=== PATIENT | male | born 1960 | race Caucasian/White ===

== ENCOUNTER 2017-01-26 10:14 | Day surgery (SDC) | payer OTHER ==
[~2017-01-26] VITALS: Ht 167.6 cm; Wt 69.8 kg
--- NOTE | ~2017-01-26 | EGD ---
EGD REPORT [facility] [address] [address] NAME: CODY RICHARDSON : [birth year] STATUS : REG [facility]#: [id number] AGE: 56 ADM/REG DATE : 01/26/17 MR#: [id number] REPORT SERV DATE: 01/26/17 DICTATED BY: AVERY MOMIN DATE: 01/26/17 REPORT STATUS : Draft [facility] DATE: 01/26/17 Endoscopy Center Patient Name: Cody Richardson Date of : 1960 Attending MD: AVERY MOMIN MD Procedure Date No Time: 01/26/2017 Procedure: Upper GI endoscopy Indications: Generalized abdominal pain, Iron deficiency anemia Referring MD: NAHEED HICKS Medicines: Propofol per Anesthesia Complications: No immediate complications. Procedure: Pre-Anesthesia Assessment: - ASA Grade Assessment: III - A patient with severe systemic disease. After obtaining informed consent, the endoscope was passed under direct vision. Throughout the procedure, the patient's blood pressure, pulse, and oxygen saturations were monitored continuously. The GIF [id number] was introduced through the mouth, and advanced to the second part of duodenum. The upper GI endoscopy was accomplished without difficulty. The patient tolerated the procedure well. Findings: The examined esophagus was normal. Diffuse moderate inflammation characterized by erosions, erythema and friability was found in the stomach. The examined duodenum was normal. Impression: - Normal esophagus. - Chronic gastritis. - Normal examined duodenum. Recommendation: - Patient has a contact number available for emergencies. The signs and symptoms of potential delayed complications were discussed with the patient. Return to normal activities tomorrow. Written discharge instructions were provided to the patient. - Regular diet. - Patient has a contact number available for emergencies. The signs and symptoms of potential delayed complications were discussed with the patient. Return to normal activities tomorrow. Written discharge instructions were provided to the patient. - Continue present medications. EGD REPORT [address] [address] NAME: CODY RICHARDSON : [birth year] STATUS : REG [facility]#: [id number] AGE: 56 ADM/REG DATE : 01/26/17 MR#: [id number] REPORT SERV DATE: 01/26/17 DICTATED BY: AVERY MOMIN. DATE: 01/26/17 REPORT STATUS : Draft TRANSCRIBED BY: [facility] DATE: 01/26/17 Procedure Code(s): --- Professional --- 21320, Esophagogastroduodenoscopy, flexible, transoral; diagnostic, including collection of specimen(s) by brushing or washing, when performed (separate procedure) Diagnosis Code(s): --- Professional --- K29.50, Unspecified chronic gastritis without bleeding R10.84, Generalized abdominal pain D50.9, Iron deficiency anemia, unspecified CPT copyright 2013 [employer] [place] [employer]. All rights reserved. The codes documented in this report are preliminary and upon networking specialist review may be revised to meet current compliance requirements. Avery Momin MD AVERY MOMIN MD 01/26/2017 10:52 AM This report has been signed electronically. Number of Addenda: 0 Note Initiated On: 01/26/2017 10:44 AM Scope Withdrawal Time 0 hours 0 minutes 0 seconds [address] [place] [address]
--- NOTE | ~2017-01-26 | EGD ---
EGD REPORT [facility] [address] [address] NAME: CODY RICHARDSON : [birth year] STATUS : REG [facility]#: [id number] AGE: 56 ADM/REG DATE : 01/26/17 MR#: [id number] REPORT SERV DATE: 01/26/17 DICTATED BY: AVERY MOMIN DATE: 01/26/17 REPORT STATUS : Draft [facility]: [facility] DATE: 01/26/17 Endoscopy Center Patient Name: Cody Richardson Date of : 1960 Attending MD: AVEYR MOMIN MD Procedure Date No Time: 01/26/2017 Procedure: Colonoscopy Indications: Iron deficiency anemia Referring MD: NAHEED HICKS Medicines: Propofol per Anesthesia Complications: No immediate complications. Procedure: Pre-Anesthesia Assessment: - ASA Grade Assessment: III - A patient with severe systemic disease. After I obtained informed consent, the scope was passed under direct vision. Throughout the procedure, the patient's blood pressure, pulse, and oxygen saturations were monitored continuously. The CF [id number] was introduced through the anus and advanced to the cecum, identified by appendiceal orifice and ileocecal valve. The colonoscopy was performed without difficulty. The patient tolerated the procedure well. The quality of the bowel preparation was good. Findings: The perianal and digital rectal examinations were normal. A few small-mouthed diverticula were found in the recto-sigmoid colon and in the sigmoid colon. Internal hemorrhoids were found during retroflexion and were Grade I (internal hemorrhoids that do not prolapse). The rest of the colon was normal. Impression: - Diverticulosis in the recto-sigmoid colon and in the sigmoid colon. - Internal hemorrhoids. Recommendation: - Patient has a contact number available for emergencies. The signs and symptoms of potential delayed complications were discussed with the patient. Return to normal activities tomorrow. Written discharge instructions were provided to the patient. - Regular diet. - Patient has a contact number available for emergencies. The signs and symptoms of potential delayed complications were discussed with the patient. Return to EGD REPORT [address] [address] NAME: CODY RICHARDSON : [birth year] STATUS : REG [facility] PAT#: [id number] AGE: 56 ADM/REG DATE : 01/26/17 MR#: [id number] REPORT SERV DATE: 01/26/17 DICTATED BY: AVERY MOMIN. DATE: 01/26/17 REPORT STATUS : Draft TRANSCRIBED BY: [employer] [facility] DATE: 01/26/17 normal activities tomorrow. Written discharge instructions were provided to the patient. - Continue present medications. Procedure Code(s): --- Professional --- 87712, Colonoscopy, flexible, proximal to splenic flexure; diagnostic, with or without collection of specimen(s) by brushing or washing, with or without colon decompression (separate procedure) Diagnosis Code(s): --- Professional --- K64.0, First degree hemorrhoids K57.30, Diverticulosis of large intestine without perforation or abscess without bleeding D50.9, Iron deficiency anemia, unspecified CPT copyright 2013 [employer] [place] [employer]. All rights reserved. The codes documented in this report are preliminary and upon information coder review may be revised to meet current compliance requirements. Avery Momin MD AVERY MOMIN MD 01/26/2017 11:09 AM This report has been signed electronically. Number of Addenda: 0 Note Initiated On: 01/26/2017 10:42 AM Scope Withdrawal Time 0 hours 11 minutes 5 seconds
[~2017-01-26 10:14] MED LIST: AMIT25 PO; COZ50 PO; FIOR PO; OXYCON20 PO; PERCOCET1 TA4 PO; PRENATABS RX PO; [UNRECOGNIZED DRUG - OTHER] IV
== END 2017-01-26 23:59 | disposition home or self-care (01) ==
LOC: DMU 10:14
PROVIDERS: Internal Medicine Gastroenterology
PROC: 0DJD8ZZ Inspection of Lower Intestinal Tract, Via Natural or Artificial Opening Endoscopic (ICD-10-PCS; principal; 2017-01-26 11:30)
PROC: 0DJ08ZZ Inspection of Upper Intestinal Tract, Via Natural or Artificial Opening Endoscopic (ICD-10-PCS; 2017-01-26 11:30)
DX: K57.30 Diverticulosis of large intestine without perforation or abscess without bleeding (principal); K64.0 First degree hemorrhoids; K29.50 Unspecified chronic gastritis without bleeding; D50.9 Iron deficiency anemia, unspecified; I10 Essential (primary) hypertension; F41.9 Anxiety disorder, unspecified; K74.60 Unspecified cirrhosis of liver; G89.29 Other chronic pain; D69.6 Thrombocytopenia, unspecified; F17.210 Nicotine dependence, cigarettes, uncomplicated; Z86.19 Personal history of other infectious and parasitic diseases; Z91.013 Allergy to seafood; Z90.49 Acquired absence of other specified parts of digestive tract; Z90.89 Acquired absence of other organs; Z98.890 Other specified postprocedural states; Z79.899 Other long term (current) drug therapy